=== PATIENT | male | born 1945 | race Caucasian/White ===

== ENCOUNTER → 2019-02-24 | Outpatient (CLI) | payer BC ==
--- NOTE | 2019-02-24 16:57 | PCVCIMAG ---
APPROVED REPORT Study performed: 02/24/2019 15:07:02 Exam: Stress Echocardiogram Indication: CAD Patient Location: Echo lab Stress Nurse: Brittney Browning RN Room #: 2 Status: routine Ht: 5 ft 5 in HR: 96 bpm BP: 114/68 mmHg Rhythm: NSR Medical History Medical History: HTN, Dyslipidemia Cardiac Risk Factors: HTN, Hyperlipidemia Pretest Chest Pain Characteristics: No chest pain Exercise History: Physically active Procedure The patient underwent an Exercise Stress Test using the Mario Protocol. Blood pressure, heart rate, and EKG were monitored. An Echocardiogram was performed by biological lab technician in four stages in quad fashion. At peak stress, four selected images were obtained and placed side by side with resting images for comparison. Stress Test Details Stress Test: Exercise stress testing was performed using a Mario protocol. HR Resting HR: 96 bpmMax Heart Rate (APMHR): 148 bpm Max HR Achieved: 179 bpmTarget HR (85% APMHR): 125 bpm % of APMHR: 120 Recovery HR: 93 bpm HR response to stress: Normal HR response to stress BP Resting BP: 114/68 mmHg Max BP: 160/82 mmHg Recovery BP: 116/68 mmHg BP response to stress: Normal blood pressure response to stress. ECG Resting ECG: Sinus Rhythm, RBBB Stress ECG: Sinus Rhythm, RBBB ST Change: Non-ischemic Maximum ST Deviation: 0 mm Arrhythmia: rare PVCs Recovery ECG: Sinus Rhythm, RBBB Recovery ST Change: Non-ischemic Recovery ST Deviation: 0 mm Recovery Arrhythmia: None Clinical Reason for Termination: Maximal effort Stress Symptoms: none Exercise duration: 9 min 15 sec Highest Stage Achieved: Stage 4: 4.2 mph at 16% grade. Exercise capacity: 10.9 METs Overall Exercise Capacity for Age: Good Scale: Active Angina Score: None No complications. Stress ECG Conclusion The patient exercised according to the MARIO protocol for 9:15 mins; achieving a work level of 10.9 METS. The resting heart rate of 96 bpm adán to a maximum heart rate of 179 bpm. This value represent 120% of the maximal, age-predicted heart rate. The resting blood pressure of 114/68 mmHg, adán to a maximum blood pressure of 160/82 mmHg. The exercise test was stopped due to fatigue. [place] Treadmill Score is 9.0 which is Low risk. Pre-Stress Echo The resting Echocardiogram showed normal left ventricular contractility with an estimated Ejection Fraction of about 55-60%. Normal wall motion in all segments on baseline images. Post-Stress Echo The stress Echocardiogram showed normal left ventricular contractility with an estimated Ejection Fraction of about 65-70%. Normal augmentation of wall motion in all segments on post stress images. Clinical No clinical or ECG evidence for ischemia. Conclusion Clinical Response: Non-ischemic Exercise Capacity: Superior Stress ECG Response: Non-ischemic Stress Echo Images: Non-ischemic No clinical, EKG or echocardiographic evidence for ischemia. No echocardiographic evidence for exercise induced ischemia. Normal stress echocardiogram with maximal exercise stress. Normal color doppler. No regurgitation or stenosis present on pulmonic, mitral, tricuspid or aortic valves. <Conclusion> No clinical, EKG or echocardiographic evidence for ischemia. No echocardiographic evidence for exercise induced ischemia. Normal stress echocardiogram with maximal exercise stress. Normal color doppler. No regurgitation or stenosis present on pulmonic, mitral, tricuspid or aortic valves.
== END | disposition home or self-care (01) ==
LOC: PCVCIMAG 15:12
PROVIDERS: ATTEND Internal Medicine
DX: I25.10 Atherosclerotic heart disease of native coronary artery without angina pectoris (principal); I10 Essential (primary) hypertension; E78.5 Hyperlipidemia, unspecified; Z88.0 Allergy status to penicillin; Z88.8 Allergy status to other drugs, medicaments and biological substances
CPT/HCPCS: 93325; 93351